=== PATIENT | male | born 1995 | race Hispanic/Latino ===

== ENCOUNTER 2022-09-16 13:20 | Emergency (ER) | payer OTHER ==
[2022-09-16 15:48] VITALS: BP 118/59
== END 2022-09-16 15:55 | disposition home or self-care (01) | DRG 605 ==
LOC: ED 13:20
PROC: 0HQ0XZZ Repair Scalp Skin, External Approach (ICD-10-PCS; principal; 2022-09-16)
DX: S01.01XA Laceration without foreign body of scalp, initial encounter (principal); W22.8XXA Striking against or struck by other objects, initial encounter

== ENCOUNTER 2022-09-29 18:50 | Emergency (ER) | payer SELFPAY ==
[~2022-09-29] VITALS: Ht 177.8 cm; Wt 74.4 kg
[2022-09-29 20:11] VITALS: BP 114/34
[2022-09-29 20:15] VITALS: BP 105/45
[2022-09-29 20:30] VITALS: BP 116/68
[2022-09-29 20:45] VITALS: BP 116/59
== END 2022-09-29 20:55 | disposition home or self-care (01) | DRG 951 ==
LOC: ED 18:50
DX: Z48.02 Encounter for removal of sutures (principal)